=== PATIENT | female | born 1985 | race Caucasian/White ===

== ENCOUNTER 2023-12-15 04:48 | Emergency (ER) | payer MEDICAID, OTHER ==
[~2023-12-15] VITALS: Ht 172.7 cm; Wt 132.5 kg
[2023-12-15 05:19] VITALS: O2SAT 100
[2023-12-15] MEDS ORDERED: IBUP-2029 MT (07:53)
[2023-12-15 08:09] VITALS: BP 128/76; PULSE 89; RESP 16; TEMP 98.4
== END 2023-12-15 08:12 | disposition home or self-care (01) ==
LOC: ER 04:48
DX: J02.9 Acute pharyngitis, unspecified (principal); I10 Essential (primary) hypertension; Z98.890 Other specified postprocedural states
CPT/HCPCS: 87070; 87430; 99291